=== PATIENT | female | born 1980 | race African-American/Black ===

== ENCOUNTER 2023-10-18 12:57 | Emergency (ER) | payer MEDICAID, OTHER ==
[~2023-10-18] VITALS: Ht 170.2 cm; Wt 107.2 kg
[2023-10-18 17:10] LABS: Basophils # (auto) 0 10 ^3/uL (0-0.2); Basophils % (auto) 0.4 % (0.0-2.0); Eosinophils # (auto) 0.3 10 ^3/uL (0-0.8); Eosinophils % (auto) 3.8 % (0.0-7.0); Hematocrit 34.7 % (36.0-46.0); Hemoglobin 11.3 g/dL (12.2-16.2); Lymphocytes # (auto) 2.7 10 ^3/uL (0.4-5.4); Lymphocytes % (auto) 35.3 % (10.0-50.0); Mean Corpuscular Hemoglobin 28.1 pg (28.0-32.0); Mean Corpuscular Hgb Conc. 32.6 g/dL (32.0-36.0); Mean Corpuscular Volume 86.2 fL (80.0-100.0); Monocytes # (auto) 0.5 10 ^3/uL (0-1.3); Monocytes % (auto) 6.8 % (0.0-12.0); Neutrophils # (auto) 4.1 10 ^3/uL (1.6-8.6); Neutrophils % (auto) 53.7 % (37.0-80.0); Red Blood Cells 4.03 10^6/uL (4.0-5.20); White Blood Cell 7.6 10^3/uL (4.4-10.8)
[2023-10-18 17:22] LABS: Urine Bacteria FEW /hpf (None Seen); Urine Blood 3+ /uL (Negative); Urine Clarity Turbid (Clear); Urine Color Yellow (Yellow); Urine Mucus FEW (None Seen); Urine Protein, UAD 1+ (Negative); Urine Specific Gravity 1.031 (1.001-1.035); Urine Urobilinogen Normal (Negative); Urine WBC 53 /hpf (0 - 5)
[2023-10-18 17:23] LABS: Alanine Aminotransferase 21 U/L (7-40); Albumin 4.2 g/dL (3.2-4.8); Alkaline Phosphatase 88 U/L (46-116); Anion Gap 5 (5-15); Aspartate Aminotransferase 20 U/L (13-40); BUN/Creatinine Ratio 16.3 (10.0-20.0); Blood Urea Nitrogen 14 mg/dL (9-23); Calcium 9.8 mg/dL (8.7-10.4); Carbon Dioxide 29 mmol/L (20-30); Chloride 107 mmol/L (98-107); Glucose 75 mg/dL (74-106); Sodium 141 mmol/L (136-145)
[2023-10-18 17:24] LABS: Bilirubin, Total 0.3 mg/dL (0.2-1.0)
[2023-10-18] MEDS ORDERED: MUPI2OIN2 EX (19:57)
[2023-10-18] MEDS ORDERED: IBUP1TAB5 PO (19:57)
[2023-10-18] MEDS ORDERED: CIP500T PO (19:57)
[2023-10-18] MEDS ORDERED: ZOFR4T PO (19:57)
[2023-10-18] MEDS: ONDANSETRON ODT 4 MG TAB PO ONE (22:03)
[2023-10-18] MEDS: TETANUS-DIPTH-ACEL PERTUSSIS 0.5ML SYR Tdap IM ONE (22:03)
[2023-10-18] MEDS: CIPROFLOXACIN HCL 500 MG TAB PO ONE (22:03)
[2023-10-18] MEDS: NEOMYCIN-BACITRACIN-POLYM UNITDOSE PKG TOP OINT TOP ONE (22:03)
[2023-10-18] MEDS: HYDROcodone-ACET 5/325MG TAB PO ONE (22:03)
[2023-10-18 22:05] VITALS: BP 166/89; PULSE 80; RESP 16; TEMP 98; O2SAT 99
== END 2023-10-18 22:05 | disposition home or self-care (01) ==
LOC: ER 12:57
DX: S92.001A Unspecified fracture of right calcaneus, initial encounter for closed fracture (principal); S90.829A Blister (nonthermal), unspecified foot, initial encounter; R51.9 Headache, unspecified; I10 Essential (primary) hypertension; N39.0 Urinary tract infection, site not specified; X58.XXXA Exposure to other specified factors, initial encounter; Y93.89 Activity, other specified; Y92.89 Other specified places as the place of occurrence of the external cause; Y99.8 Other external cause status
CPT/HCPCS: 36415; 70450; 73630; 80053; 81001; 84484; 85025; 93005